=== PATIENT | female | born 1955 ===

== ENCOUNTER 2024-11-02 11:45 | Emergency (ER) | payer SELFPAY ==
[~2024-11-02] VITALS: Ht 165.1 cm; Wt 72.6 kg
[2024-11-02] MEDS ORDERED: Ketorolac Tromethamine 30mg Vial IM ONE (15:10)
[2024-11-02] MEDS ORDERED: TRAM50 PO (15:13)
== END 2024-11-02 15:30 | disposition home or self-care (01) ==
LOC: ER 11:45
DX: M79.652 Pain in left thigh (principal); Z88.8 Allergy status to other drugs, medicaments and biological substances
CPT/HCPCS: 93971; 96372; 99283-25; J1885